=== PATIENT | male | born 1990 | race Two or more races ===

== ENCOUNTER 2023-11-02 10:50 | Outpatient (CLI) | payer OTHER | END 2023-11-02 11:07 | disposition home or self-care (01) | LOC: SONOGRAMA 10:50 | PROVIDERS: ATTEND Physical Medicine & Rehabilitation Hospice and Palliative Medicine | DX: M25.511 Pain in right shoulder (principal); M25.512 Pain in left shoulder; S46.111A Strain of muscle, fascia and tendon of long head of biceps, right arm, initial encounter; S46.112A Strain of muscle, fascia and tendon of long head of biceps, left arm, initial encounter ==

== ENCOUNTER 2023-12-09 14:06 | Outpatient (CLI) | payer OTHER | END 2023-12-09 14:10 | disposition home or self-care (01) | LOC: MRI 14:06 | PROVIDERS: ATTEND Orthopaedic Surgery Sports Medicine | DX: S43.52XA Sprain of left acromioclavicular joint, initial encounter (principal) | CPT/HCPCS: 73221 ==